=== PATIENT | female | born 1965 | race Caucasian/White ===

== ENCOUNTER 2017-12-26 16:42 | Emergency (ER) | payer SELFPAY ==
[2017-12-26] MEDS ORDERED: ONDANSETRON HCL 4 MG/2 ML SOL IV ONE (16:53)
[2017-12-26] MEDS ORDERED: PANTOPRAZOLE SODIUM 40 MG/10 ML PDS IV ONE (16:53)
[2017-12-26] MEDS ORDERED: LORAZEPAM 2 MG/ML SOL IV ONE (16:54)
[2017-12-26] MEDS ORDERED: LORAZEPAM 2 MG/ML SOL ONE (16:59)
[2017-12-26] MEDS ORDERED: ONDANSETRON HCL 4 MG/2 ML SOL ONE (17:00)
[2017-12-26] MEDS ORDERED: SODIUM CHLORIDE 0.9% 1000ML 1,000 ML IV SCH (17:00)
[2017-12-26] MEDS ORDERED: PANTOPRAZOLE SODIUM 40 MG/10 ML PDS ONE (17:00)
[2017-12-26 17:04] LABS: BASOPHILS % (AUTO) 1 % (0-3); EOSINOPHILS % (AUTO) 0 % (0-9); HEMATOCRIT 45 % (35-47); MEAN CORPUSCULAR HGB CONC 33.8 gm/dl (32.0-36.0); MEAN CORPUSCULAR VOLUME 91 fL (81-99); MONOCYTES % (AUTO) 5.2 % (0-12); NEUTROPHILS % (AUTO) 88.9 % (37-80)
[2017-12-26 17:17] LABS: ALBUMIN 4.6 gm/dl (3.4-5.0); CALCIUM 9.4 mg/dl (8.5-10.1)
[2017-12-26] MEDS ORDERED: MORPHINE SULFATE 10 MG/ML SOL IV ONE (17:25)
[2017-12-26] MEDS ORDERED: MORPHINE SULFATE 10 MG/ML SOL ONE (17:29)
[2017-12-26 18:18] VITALS: BP 110/64; PULSE 69; O2SAT 94
[2017-12-26 18:19] VITALS: RESP 18; TEMP 97.6
== END 2017-12-26 18:45 | disposition home or self-care (01) | DRG 392 ==
LOC: ED 16:42
DX: A08.4 Viral intestinal infection, unspecified (principal)
CPT/HCPCS: 74019; 80053; 85025; 87804; 93005; 96365; 96374; 96375; 99284; 99285; J2060; J2270; J2405